=== PATIENT | female | born 1935 | race Caucasian/White ===

== ENCOUNTER 2020-02-05 16:57 | Emergency (ER) | payer OTHER ==
[~2020-02-05] VITALS: Ht 154.9 cm; Wt 76.7 kg
[~2020-02-05 16:57] MED LIST: MOMETASONE FURO60 ML TP; OXYBUTYNIN 5 MG5 M1; PREDNISONE 20 M20 M1 PO; SERTRALINE HCL50 MG
[2020-02-05] MEDS ORDERED: SUPER THERAVIT1 EACH PO (17:14)
[2020-02-05] MEDS ORDERED: VITAMIN D310 MC1 PO (17:14)
[2020-02-05] MEDS ORDERED: CALCIUM500 MG PO (17:15)
[2020-02-05 19:08] VITALS: BP 178/70
== END 2020-02-05 19:09 | disposition home or self-care (01) ==
LOC: M.ERS 16:57
DX: S00.83XA Contusion of other part of head, initial encounter (principal); S50.311A Abrasion of right elbow, initial encounter; M19.90 Unspecified osteoarthritis, unspecified site; Z79.899 Other long term (current) drug therapy; Z88.2 Allergy status to sulfonamides; Z88.6 Allergy status to analgesic agent; Z90.49 Acquired absence of other specified parts of digestive tract; Z90.710 Acquired absence of both cervix and uterus; W18.39XA Other fall on same level, initial encounter; Y93.89 Activity, other specified; Y92.89 Other specified places as the place of occurrence of the external cause; Y99.8 Other external cause status